=== PATIENT | female | born 1950 | race Caucasian/White ===

== ENCOUNTER 2023-12-27 16:00 | Inpatient (IN) | payer MEDICARE ==
[~2023-12-27] VITALS: Ht 162.5 cm; Wt 71.4 kg
[2023-12-27 16:05] VITALS: BP 131/74
[2023-12-27 16:09] LABS: BASO % 0.6 % (0.0-1.0); EOS % 0.6 % (1.0-4.0); HEMATOCRIT 39.4 % (37.0-47.0); LYMPH % 40.3 % (27.0-41.0); MEAN CELL VOLUME 98.7 fl (81.0-99.0); MEAN CORPUSCULAR HGB 31.1 pg (27.0-31.0); MEAN CORPUSCULAR HGB CONC 31.5 g/dl (33.0-37.0); MEAN PLATELET VOLUME 10.3 fl (9.6-12.3); MONO # 0.5 10*3/uL (0.1-1.0); MONO % 10.8 % (3.0-9.0); NEUT # 2.4 10*3/uL (2.3-7.9); NEUT % 47.3 % (47.0-73.0); PLATELET COUNT AUTOMATED 152 10*3/uL (130-400); RED BLOOD COUNT 3.99 10*6/uL (4.10-5.10)
[2023-12-27 16:29] LABS: BUN 21 mg/dl (9-23); CHLORIDE 105 mmol/L (98-107); POTASSIUM 3.9 mmol/L (3.4-5.1)
[2023-12-27 16:32] LABS: ETHYL ALCOHOL < 3.0 mg/dl (<3)
[2023-12-27 16:37] LABS: BILIRUBIN Negative (Negative); BLOOD Negative (Negative); CLARITY Clear (Clear); COLOR Yellow (Yellow); GLUCOSE Negative (Negative); KETONE Negative (Negative); LEUKO ESTERASE Trace (Negative); NITRITE Negative (Negative); PH 7.5 (4.5-8.0)
[2023-12-27 16:44] LABS: URINE AMPHETAMINES Negative (1000ng/ml); URINE BARBITURATES Negative (200ng/ml); URINE BENZODIAZEPINES Negative (200ng/ml); URINE CANNABINOIDS (THC) Negative (50ng/ml); URINE COCAINE Negative (300ng/ml); URINE METHADONE Negative (300ng/ml); URINE OPIATES Negative (300ng/ml); URINE PHENCYCLIDINE Negative (25ng/ml)
[2023-12-27 16:54] LABS: EPITHELIAL CELLS 0-2
[2023-12-27] MEDS ORDERED: TYLENOL325 M1 PO (18:48)
[2023-12-27] MEDS ORDERED: LIPITOR10 MG PO (18:49)
[2023-12-27] MEDS ORDERED: DEPAKOTE SPRIN125 MG PO (18:50)
[2023-12-27] MEDS ORDERED: DULCOLAX10 M1 R (18:50)
[2023-12-27] MEDS ORDERED: ANTI-DIARRHEAL2 MG PO (18:51)
[2023-12-27] MEDS ORDERED: ATIVAN0.5 MG PO ×2 (18:52)
[2023-12-27] MEDS ORDERED: NAMENDA-5 PO (18:53)
[2023-12-27] MEDS ORDERED: RIVASTIGMINE TAR6 M1 PO (18:54)
[2023-12-27] MEDS ORDERED: [UNRECOGNIZED DRUG - OTHER] PO (18:54)
[2023-12-27] MEDS ORDERED: VITAMIN B-121000 MC2 PO (18:55)
[2023-12-27] MEDS ORDERED: VITAMIN D325 MCG PO (18:56)
[2023-12-27 19:09] VITALS: BP 150/85
[2023-12-27] MEDS ORDERED: MG-AL HYDROXIDE/SIMETICONE 30 ML UDC PO PRN (19:30)
[2023-12-27] MEDS ORDERED: Magnesium Hydroxide 30 ML UDC PO PRN (19:30)
[2023-12-27] MEDS ORDERED: ACETAMINOPHEN 325 MG TAB PO PRN (19:30)
[2023-12-27] MEDS ORDERED: LORazepam 1 MG TAB PO PRN (19:35)
[2023-12-27] MEDS ORDERED: Ziprasidone Mesylate 20 MG VIAL IM PRN (19:40)
[2023-12-27] MEDS ORDERED: Water, Sterile 10 ML VIAL IM PRN (19:40)
[2023-12-27 20:00] VITALS: BP 150/85
[2023-12-27] MEDS ORDERED: LORazepam 2 MG/ML VIAL IM PRN (20:00)
[2023-12-27] MEDS ORDERED: Memantine Hydrochloride 10 MG TAB PO SCH (21:00)
[2023-12-27] MEDS ORDERED: DIVALPROEX SODIUM 125 MG CAP PO SCH (21:00)
[2023-12-27] MEDS ORDERED: Rivastigmine Tartrate 3 MG CAP PO SCH (21:00)
[2023-12-27] MEDS ORDERED: ATORVASTATIN CALCIUM 10 MG TAB PO SCH (21:00)
[2023-12-28 06:45] LABS: VALPROIC ACID (DEPAKENE) 80.3 ug/ml (50-100)
[2023-12-28 07:35] LABS: VITAMIN D, 25-HYDROXY 50.6 ng/mL (30-100)
[2023-12-28 08:00] VITALS: BP 140/90
[2023-12-28] MEDS ORDERED: MED. FROM HOME 1 EACH EA PO SCH (09:00)
[2023-12-28] MEDS ORDERED: CYANOCOBALAMIN 500 MCG TAB PO SCH (09:00)
[2023-12-28] MEDS ORDERED: MULTIVITAMIN 1 TAB TAB PO SCH (09:00)
[2023-12-28] MEDS ORDERED: Vitamin D 1,000 IU TAB (25 MCG) PO SCH (09:00)
[2023-12-28] MEDS ORDERED: DICLOFENAC SODIUM 100 GM TUBE T PRN (11:35)
[2023-12-28 20:00] VITALS: BP 105/56
[2023-12-28] MEDS ORDERED: DIVALPROEX (DR) 250 MG TAB PO SCH (21:00)
[2023-12-29 07:41] VITALS: BP 137/73
[2023-12-29 20:49] VITALS: BP 124/83
[2023-12-29] MEDS ORDERED: MED. FROM HOME 1 EACH EA PO SCH (21:00)
[2023-12-30 08:23] VITALS: BP 104/58
[2023-12-30] MEDS ORDERED: AUVELITY PO SCH (09:00)
[2023-12-30 20:00] VITALS: BP 121/70
[2023-12-30] MEDS ORDERED: hydrOXYzine pamoate 25 MG CAP PO SCH (20:00)
[2023-12-31 07:38] VITALS: BP 116/79
[2023-12-31] MEDS ORDERED: LORazepam 0.5 MG TAB PO SCH (13:00)
[2023-12-31 20:00] VITALS: BP 130/60
[2024-01-01 07:55] VITALS: BP 107/55
[2024-01-01 20:00] VITALS: BP 118/60
[2024-01-02 20:00] VITALS: BP 117/65
[2024-01-03 08:00] VITALS: BP 113/65
[2024-01-03 10:00] LABS: BASO % 0.8 % (0.0-1.0); EOS # 0.1 10*3/uL (0.0-0.4); EOS % 1.2 % (1.0-4.0); HEMATOCRIT 39.7 % (37.0-47.0); LYMPH # 1.7 10*3/uL (1.3-4.4); LYMPH % 33.8 % (27.0-41.0); MEAN CELL VOLUME 98.8 fl (81.0-99.0); MEAN CORPUSCULAR HGB 31.3 pg (27.0-31.0); MEAN CORPUSCULAR HGB CONC 31.7 g/dl (33.0-37.0); MEAN PLATELET VOLUME 10.2 fl (9.6-12.3); MONO # 0.5 10*3/uL (0.1-1.0); MONO % 10.5 % (3.0-9.0); NEUT # 2.7 10*3/uL (2.3-7.9); NEUT % 53.5 % (47.0-73.0); PLATELET COUNT AUTOMATED 176 10*3/uL (130-400); RED BLOOD COUNT 4.02 10*6/uL (4.10-5.10); RED CELL DISTRI WIDTH 12.9 % (0-14.5)
[2024-01-03 10:43] LABS: ALKALINE PHOSPHATASE 82 U/L (46-116); BUN 18 mg/dl (9-23); CHLORIDE 105 mmol/L (98-107); SGPT/ALT 14 U/L (5-49); TOTAL PROTEIN 7.1 gm/dL (6.0-8.0)
[2024-01-03 20:00] VITALS: BP 143/83
[2024-01-04 07:52] VITALS: BP 105/63; BP 139/71
[2024-01-04] MEDS ORDERED: RIVASTIGMINE TAR3 M1 PO (09:39)
[2024-01-04] MEDS ORDERED: HOMEMED PO (09:39)
[2024-01-04] MEDS ORDERED: MEMANTINE HCL10 MG PO (09:39)
[2024-01-04] MEDS ORDERED: LORAZEPAM0.5 M1 PO (09:39)
[2024-01-04] MEDS ORDERED: Rivastigmine Tartrate 1.5 MG CAP PO SCH (10:21)
== END 2024-01-04 13:20 | DRG 57 ==
LOC: ED → EDHOLD 17:41 → 3N 17:41
PROVIDERS: Counselor Professional; Emergency Medicine; ADMIT Psychiatry & Neurology Psychiatry; ATTEND Psychiatry & Neurology Psychiatry
PROC: GZHZZZZ Group Psychotherapy (ICD-10-PCS; principal; 2023-12-27)
PROC: GZ52ZZZ Individual Psychotherapy, Cognitive (ICD-10-PCS; 2023-12-27)
PROC: GZ56ZZZ Individual Psychotherapy, Supportive (ICD-10-PCS; 2023-12-27)
DX: G30.9 Alzheimer's disease, unspecified (principal); F02.818 Dementia in other diseases classified elsewhere, unspecified severity, with other behavioral disturbance; F33.1 Major depressive disorder, recurrent, moderate; F02.B3 Dementia in other diseases classified elsewhere, moderate, with mood disturbance; F48.2 Pseudobulbar affect; Z66 Do not resuscitate; E78.5 Hyperlipidemia, unspecified; E55.9 Vitamin D deficiency, unspecified; E53.8 Deficiency of other specified B group vitamins; Z86.718 Personal history of other venous thrombosis and embolism; Z51.5 Encounter for palliative care; Z86.711 Personal history of pulmonary embolism